=== PATIENT | female | born 1970 | race Caucasian/White ===

== ENCOUNTER → 2016-11-26 | Outpatient (CLI) | payer BC ==
[2014-09-13 19:50] VITALS: BP 136/63
[~2016-11-26] MED LIST: CITA20TA5 PO; MIRA25TA PO; OMEP20TA PO
--- NOTE | 2016-11-26 09:17 | KCIC ---
Right breast ultrasound: Reason for examination: Followup nodules. Comparison is made to previous study dated 05/11/2016. There are several small subcentimeter cysts present in the right breast. No solid or suspicious nodules are seen. No abnormal lymph nodes are seen in the axilla. Impression: Right breast cysts. No suspicious abnormalities seen. Recommend routine mammographic followup. BI-RADS category 2: Benign. This patient's information has been entered into a reminder system for the patient to be notified with the results of this examination and a target date for her next mammograms. Electronically signed by: Carla Brunner MD (Nov 26, 2016 09:16:09)
== END | disposition home or self-care (01) ==
LOC: KCIC US 08:17
PROVIDERS: ATTEND Obstetrics & Gynecology
DX: N60.01 Solitary cyst of right breast (principal)
CPT/HCPCS: 76641

== ENCOUNTER 2019-06-06 15:02 | Emergency (ER) | payer BC ==
[~2019-06-06] VITALS: Ht 162.6 cm; Wt 96.2 kg
[~2019-06-06 15:02] MED LIST changes: -CITA20TA5 PO; +CITA20TA6 PO; -OMEP20TA PO; +OMEP20TA8 PO
[2019-06-06 15:40] LABS: BASO # 0.1 x10^3/uL (0.0-0.2); BASO % 1 % (0-3); EOS # 0.2 x10^3/uL (0.0-0.7); EOS % 2 % (0-3); HEMATOCRIT 36.6 % (36.0-47.0); HEMOGLOBIN 12.8 g/dL (12.0-15.5); LYMPH # 4.8 x10^3/uL (1.0-4.8); LYMPH % 32 % (24-48); MEAN CORPUSCULAR HEMOGLOBIN 32 pg (25-35); MEAN CORPUSCULAR HGB CONC 35 g/dL (31-37); MEAN CORPUSCULAR VOLUME 91 fL (79-100); MONO # 0.9 x10^3/uL (0.0-1.1); MONO % 6 % (0-9); NEUT # 8.8 x10^3/uL (1.8-7.7); NEUT % 59 % (31-73); PLATELET COUNT 361 x10^3/uL (140-400); RED BLOOD COUNT 4.02 x10^6/uL (3.50-5.40); RED CELL DISTRIBUTION WIDTH 13.8 % (11.5-14.5); WHITE BLOOD COUNT 14.9 x10^3/uL (4.0-11.0)
[2019-06-06 15:41] LABS: BILIRUBIN,URINE SMALL (NEG); CLARITY,URINE CLEAR; COLOR,URINE AMBER; NITRITE,URINE NEGATIVE (NEG); PH,URINE 5.5; PROTEIN,URINE NEGATIVE (NEG-TRACE)
[2019-06-06] MEDS ORDERED: IV NORMAL SALINE 1000ML BAG 1,000 ML IV ONE (15:45)
--- NOTE | 2019-06-06 15:46 | PHYS DOC ---
Past Medical History Past Medical History: Anxiety Past Surgical History: Cholecystectomy, , Hysterectomy Alcohol Use: Rarely Drug Use: None Adult General Chief Complaint Chief Complaint: ABDOMINAL PAIN HPI HPI Patient is a 48 year old female with history of breast cancer currently not on chemotherapy who presents to the ED today complaining of moderate bilateral lower abdominal pain with nausea and vomiting that began 3 days ago, patient denies any exacerbating or relieving factors to her symptoms. Patient was seen at urgent care and was sent to the ED for small bowel obstruction rule out. She states she's had small amount of loose stools. She states she is not able to pass gas. She states she has tried her oxycodone at home with no relief of her symptoms. She states she has history of 3 abdominal [id number] Review of Systems Review of Systems Constitutional: Denies fever or chills [] Eyes: Denies change in visual acuity, redness, or eye pain [] HENT: Denies nasal congestion or sore throat [] Respiratory: Denies cough or shortness of breath [] Cardiovascular: No additional information not addressed in HPI [] GI: Reports bilateral lower abdominal pain with vomiting, denies bloody stools or diarrhea [] : Denies dysuria or hematuria [] Musculoskeletal: Denies back pain or joint pain [] Integument: Denies rash or skin lesions [] Neurologic: Denies headache, focal weakness or sensory changes [] All other systems were reviewed and found to be within normal limits, except as documented in this note. Current Medications Current Medications Current Medications Medications (Trade) Dose Ordered Sig/Cynthia Start Time Stop Time Status Last Admin Dose Admin Ceftriaxone Sodium (Rocephin) 1 gm 1X ONCE 06/06/19 17:30 06/06/19 17:31 DC 06/06/19 17:46 1 GM Info (CONTRAST GIVEN -- Rx MONITORING) 1 each PRN DAILY PRN 06/06/19 16:15 06/08/19 16:14 Iohexol (Omnipaque 300 Mg/ml) 75 ml 1X ONCE 06/06/19 16:15 06/06/19 16:16 DC 06/06/19 16:16 75 ML Morphine Sulfate (Morphine Sulfate) 5 mg 1X ONCE 06/06/19 16:15 06/06/19 16:16 DC 06/06/19 15:54 5 MG Ondansetron HCl (Zofran) 4 mg 1X ONCE 06/06/19 16:15 06/06/19 16:16 DC 06/06/19 15:54 4 MG Potassium Chloride (Klor-Con) 40 meq 1X ONCE 06/06/19 18:15 06/06/19 18:16 DC 06/06/19 18:24 40 MEQ Sodium Chloride 1,000 ml @ 1,000 mls/hr 1X ONCE 06/06/19 15:45 06/06/19 16:44 DC 06/06/19 15:54 1,000 MLS/HR Allergies Allergies Allergies Coded Allergies Type Severity Reaction Last Updated Verified No Known Drug Allergies 04/08/14 No Physical Exam Physical Exam Constitutional: Well developed, well nourished, no acute distress, non-toxic appearance. [] HENT: Normocephalic, atraumatic, bilateral external ears normal, oropharynx mois t, no oral exudates, nose normal. [] Eyes: PERRLA, EOMI, conjunctiva normal, no discharge. [] Neck: Normal range of motion, no tenderness, supple, no stridor. [] Cardiovascular:Heart rate regular rhythm, no murmur [] Lungs & Thorax: Bilateral breath sounds clear to auscultation [] Abdomen: Old healed surgical incisions noted midline lower abdomen as well as horizontal lower abdomen. Bowel sounds normal, soft, moderate tenderness diffusely on palpation of bilateral lower abdomen, negative psoas sign, negative obturator sign, no rebound pain or tenderness, no masses, no pulsatile masses. [] Skin: Warm, dry, no erythema, no rash. [] Back: No tenderness, no CVA tenderness. [] Extremities: No tenderness, no cyanosis, no clubbing, ROM intact, no edema. [] Neurologic: Alert and oriented X 3, normal motor function, normal sensory function, no focal deficits noted. [] Psychologic: Patient is restless, crying in pain Current Patient Data Vital Signs Vital Signs Date Time Temp Pulse Resp B/P (MAP) Pulse Ox O2 Delivery O2 Flow Rate FiO2 06/06/19 15:54 Room Air 06/06/19 15:12 98.8 75 16 123/82 (96) 95 98.8 Lab Values Laboratory Tests Test 06/06/19 15:10 06/06/19 15:31 Urine Collection Type Unknown Urine Color Zina Urine Clarity Clear Urine pH 5.5 Urine Specific [place] 1.025 Urine Protein Negative mg/dL (NEG-TRACE) Urine Glucose (UA) Negative mg/dL (NEG) Urine Ketones (Stick) Negative mg/dL (NEG) Urine Blood Moderate (NEG) Urine Nitrite Negative (NEG) Urine Bilirubin Small (NEG) Urine Urobilinogen Dipstick 1.0 mg/dL (0.2 mg/dL) Urine Leukocyte Esterase Moderate (NEG) Urine RBC Rare /HPF (0-2) Urine WBC 1-4 /HPF (0-4) Urine Squamous Epithelial Cells Few /LPF Urine Bacteria 0 /HPF (0-FEW) Urine Opiates Screen Neg (NEG) Urine Methadone Screen Neg (NEG) Urine Barbiturates Neg (NEG) Urine Phencyclidine Screen Neg (NEG) Urine Amphetamine/Methamphetamine Neg (NEG) Urine Benzodiazepines Screen Neg (NEG) Urine Cocaine Screen Neg (NEG) Urine Cannabinoids Screen Pos (NEG) Urine Ethyl Alcohol Neg (NEG) White Blood Count 14.9 x10^3/uL (4.0-11.0) H Red Blood Count 4.02 x10^6/uL (3.50-5.40) Hemoglobin 12.8 g/dL (12.0-15.5) Hematocrit 36.6 % (36.0-47.0) Mean Corpuscular Volume 91 fL (79-100) Mean Corpuscular Hemoglobin 32 pg (25-35) Mean Corpuscular Hemoglobin Concent 35 g/dL (31-37) Red Cell Distribution Width 13.8 % (11.5-14.5) Platelet Count 361 x10^3/uL (140-400) Neutrophils (%) (Auto) 59 % (31-73) Lymphocytes (%) (Auto) 32 % (24-48) Monocytes (%) (Auto) 6 % (0-9) Eosinophils (%) (Auto) 2 % (0-3) Basophils (%) (Auto) 1 % (0-3) Neutrophils # (Auto) 8.8 x10^3/uL (1.8-7.7) H Lymphocytes # (Auto) 4.8 x10^3/uL (1.0-4.8) Monocytes # (Auto) 0.9 x10^3/uL (0.0-1.1) Eosinophils # (Auto) 0.2 x10^3/uL (0.0-0.7) Basophils # (Auto) 0.1 x10^3/uL (0.0-0.2) Sodium Level 141 mmol/L (136-145) Potassium Level 3.0 mmol/L (3.5-5.1) L Chloride Level 102 mmol/L (98-107) Carbon Dioxide Level 29 mmol/L (21-32) Anion Gap 10 (6-14) Blood Urea Nitrogen 14 mg/dL (7-20) Creatinine 0.9 mg/dL (0.6-1.0) Estimated GFR (Cockcroft-Gault) 66.3 BUN/Creatinine Ratio 16 (6-20) Glucose Level 116 mg/dL (70-99) H Calcium Level 9.1 mg/dL (8.5-10.1) Total Bilirubin 0.4 mg/dL (0.2-1.0) Aspartate Amino Transferase (AST) 24 U/L (15-37) Alanine Aminotransferase (ALT) 37 U/L (14-59) Alkaline Phosphatase 68 U/L (46-116) Total Protein 7.4 g/dL (6.4-8.2) Albumin 3.7 g/dL (3.4-5.0) Albumin/Globulin Ratio 1.0 (1.0-1.7) Lipase 81 U/L (73-393) Ethyl Alcohol Level < 10 mg/dL (0-10) Laboratory Tests 06/06/19 15:31 Laboratory Tests 06/06/19 15:31 EKG EKG [] Radiology/Procedures Radiology/Procedures []PROCEDURE: CT ABD PELV W/ IV CONTRST ONLY Exam: CT abdomen and pelvis with contrast INDICATION: Abdominal pain, rule out small bowel obstruction TECHNIQUE: Sequential axial images through the abdomen and pelvis obtained following the administration of 75 mL of Omni 300 IV contrast. Sagittal and coronal reformatted images were reconstructed from the axial data and reviewed. Comparisons: None FINDINGS: Heart size is normal. No pericardial effusion. Visualized lung bases are clear. No pleural effusion. Liver, spleen, pancreas, and adrenals are unremarkable. Gallbladder is surgically absent. Kidneys demonstrate symmetric enhancement. No perinephric inflammation or hydronephrosis. No renal or ureteral calculi are identified. Bladder is distended and appears thin walled. Uterus is surgically absent. No abnormal adnexal mass. There are scattered diverticula noted of the sigmoid colon without evidence of acute diverticulitis. The remainder of the large and small bowel are unremarkable. Appendix is normal. No free intra-abdominal air or fluid. No obstruction. Abdominal aorta has a normal course and caliber. Abdominal vasculature is patent. No enlarged intra-abdominal lymph nodes are identified. No suspicious osseous lesions or acute fractures. IMPRESSION: 1. Scattered diverticulosis without evidence of acute diverticulitis. 2. No acute process identified within the abdomen or pelvis. No obstruction. Exposure: One or more of the following in the visualized dose reduction techniques were utilized for this examination: 1. Automated exposure control 2. Adjustment of the MA and/or KV according to patient size 3. Use of iterative of reconstructive technique Electronically signed by: Portia Wyman MD (06/06/2019 4:29 PM) [facility] DICTATED and SIGNED BY: PORTIA WYMAN MD DATE: 06/06/19 1621 Course & Med Decision Making Course & Med Decision Making Pertinent Labs and Imaging studies reviewed. (See chart for details) This is a 48-year-old female patient presenting to the ED today with bilateral lower abdominal pain with vomiting for 3 days and concern for small bowel obstruction. Her stools have been loose for the last 3 days. CBC with a WBC of 14.9, CMP with potassium of 3.0, patient was given oral potas sium replacement. CT of the abdomen and pelvic was noted for diverticulosis otherwise no acute findings. Urine analysis is noted for UTI. Offered admission, she declined. Patient was given Rocephin IV in the ED. Discharged to home on cipro. Follow-up with PCP in one week Maria Disclaimer Dragon Disclaimer This electronic medical record was generated, in whole or in part, using a voice recognition dictation system. Departure Departure Impression: Primary Impression: Pyelonephritis Additional Impression: Diverticulosis Disposition: 01 HOME, SELF-CARE Condition: STABLE Referrals: RACHAEL HIRSCH (PCP) Follow-up in the course of this week or next Patient Instructions: Pyelonephritis, Adult, [id number] Additional Instructions: You were evaluated in the emergency room and noted to have a kidney infection. We put you on antibiotics, ensure you complete them. Follow-up with your own doctor in the course of this week or next week. Push fluids. Continue taking her pain medicine as needed. Scripts Ondansetron Hcl (ZOFRAN) 4 Mg Tablet 1 TAB PO Q6HRS, #20 TAB Prov: ARACELY OAKLEY APRN 06/06/19 Ciprofloxacin Hcl (CIPRO) 500 Mg Tablet 1 TAB PO BID, #14 TAB Prov: ARACELY OAKLEY APRN 06/06/19 Problem Qualifiers ARACELY OAKLEY APRN Jun 06, 2019 15:46
[2019-06-06 15:47] LABS: BARBITURATES NEG (NEG); BENZODIAZEPINES NEG (NEG); CANNABINOIDS POS (NEG); COCAINE NEG (NEG); METHADONE NEG (NEG); OPIATES NEG (NEG); PHENCYCLIDINE NEG (NEG)
[2019-06-06 15:48] LABS: AMPHETAMINE/METHAMPHETAMINE NEG (NEG)
[2019-06-06 15:51] LABS: CALCIUM 9.1 mg/dL (8.5-10.1); CREATININE 0.9 mg/dL (0.6-1.0); GFR 66.3
[2019-06-06 15:58] LABS: BACTERIA,URINE 0 /HPF (0-FEW); RBC,URINE RARE /HPF (0-2); SQUAMOUS EPITHELIAL CELL,UR FEW /LPF
[2019-06-06 15:59] LABS: ALBUMIN 3.7 g/dL (3.4-5.0); TOTAL BILIRUBIN 0.4 mg/dL (0.2-1.0); TOTAL PROTEIN 7.4 g/dL (6.4-8.2)
[2019-06-06] MEDS ORDERED: IOHEXOL 300 MG/ML 100ML VIAL. IV ONE (16:15)
[2019-06-06] MEDS ORDERED: MORPHINE SULFATE 10 MG/ML VIAL. IV ONE (16:15)
[2019-06-06] MEDS ORDERED: ONDANSETRON PF 4 MG/2 ML VIAL. IV ONE (16:15)
[2019-06-06] MEDS ORDERED: CONTRAST GIVEN. MC PRN (16:15)
--- NOTE | 2019-06-06 16:31 | RAD ---
Exam: CT abdomen and pelvis with contrast INDICATION: Abdominal pain, rule out small bowel obstruction TECHNIQUE: Sequential axial images through the abdomen and pelvis obtained following the administration of 75 mL of Omni 300 IV contrast. Sagittal and coronal reformatted images were reconstructed from the axial data and reviewed. Comparisons: None FINDINGS: Heart size is normal. No pericardial effusion. Visualized lung bases are clear. No pleural effusion. Liver, spleen, pancreas, and adrenals are unremarkable. Gallbladder is surgically absent. Kidneys demonstrate symmetric enhancement. No perinephric inflammation or hydronephrosis. No renal or ureteral calculi are identified. Bladder is distended and appears thin walled. Uterus is surgically absent. No abnormal adnexal mass. There are scattered diverticula noted of the sigmoid colon without evidence of acute diverticulitis. The remainder of the large and small bowel are unremarkable. Appendix is normal. No free intra-abdominal air or fluid. No obstruction. Abdominal aorta has a normal course and caliber. Abdominal vasculature is patent. No enlarged intra-abdominal lymph nodes are identified. No suspicious osseous lesions or acute fractures. IMPRESSION: 1. Scattered diverticulosis without evidence of acute diverticulitis. 2. No acute process identified within the abdomen or pelvis. No obstruction. Exposure: One or more of the following in the visualized dose reduction techniques were utilized for this examination: 1. Automated exposure control 2. Adjustment of the MA and/or KV according to patient size 3. Use of iterative of reconstructive technique Electronically signed by: Portia Bearden MD (06/06/2019 4:29 PM) [facility]
[2019-06-06] MEDS ORDERED: cefTRIAXone IV Push 1 GM VIAL. IVP ONE (17:30)
[2019-06-06] MEDS ORDERED: POTASSIUM CHLORIDE 20 MEQ TABLET.ER. PO ONE (18:15)
[2019-06-06 18:41] VITALS: BP 111/56
[2019-06-06] MEDS ORDERED: ONDA4TAB7 PO (18:54)
[2019-06-06] MEDS ORDERED: CIPR500T94 PO (18:54)
[2019-06-06] MEDS ORDERED: HYDROmorphone 2 MG/ML VIAL IV ONE (19:00)
== END 2019-06-06 19:05 | disposition home or self-care (01) ==
LOC: ER 15:02
DX: N12 Tubulo-interstitial nephritis, not specified as acute or chronic (principal); K57.90 Diverticulosis of intestine, part unspecified, without perforation or abscess without bleeding; R11.2 Nausea with vomiting, unspecified; Z90.49 Acquired absence of other specified parts of digestive tract; Z90.710 Acquired absence of both cervix and uterus
CPT/HCPCS: 36415; 74177; 80053; 80307; 81001; 83690; 85025; 87086; 96361; 96374; 96375; 99285; G0480; J0696; J1170; J2270; J2405; J7030; Q9967